=== PATIENT | male | born 1965 | race African-American/Black ===

== ENCOUNTER 2017-07-17 14:05 | Emergency (ER) | payer SELFPAY ==
[2017-07-17 14:14] VITALS: BP 138/82; BMI 24.3
--- NOTE | 2017-07-17 14:40 | RAD ---
Examination: Portable AP chest History: Chest pain Comparison reference: None Findings: The heart is borderline enlarged, accentuated by nonstandard projection. There are prominen t linear pulmonary markings in the medial right lung base. There is no consolidation, pulmonary edema or pleural effusion. Impression: Borderline to mild cardiomegaly. Minor areas of right basal atelectasis may be present. N egative otherwise. Reported By:
--- NOTE | 2017-07-17 14:51 | DR.GENAD ---
HPI - PCP Primary Care Physician: NFD - Complaint/Symptoms Chief Complaint Doctors Comments: Patient states he has been having chest pain for the past two days. States pain started again today about four hours ago while he was cleaning a "coon". States he has been celebrating and has been drinking a lot but does not do drugs. States he is from [place] and he does not know the name of his doctor. He denies any recent trauma. States he smokes . He denies cold or cough. Chief Complaint:: "I have been having chest pain for about 2 days now. It is sharp pain." - Nurses notes reviewed Nurses Notes Review: Yes - Source History Provided: Patient - Mode of Arrival Mode of Arrival: EMS - Timing Onset of Chief Complaint: 07/15/17 Came on: Gradually - Duration Duration: Intermittent How lon Duration: Days - Location Location: xiphoid chest - Severity Severity: Moderate - Modifying Factors Worsens:: nothing Improves:: nothing PMH - PMH Past Medical History: Yes Past Medical History: Hypertension Past Medical History Comment: HIV Past Surgical History: Yes Surgical History: Other Past Surgical History Comment: Hernia repair - Family History History of Family Medical Conditions: (Unknown) - Social History Does patient currently use any type of tobacco product: Yes Have you used tobacco products in the last 12 months: Yes Type of Tobacco Use: Cigarettes Does any household member use tobacco: No Alcohol Use: Heavy Do you use any recreational Drugs:: No Lives With: Alone Lives Where: Home - infectious screening In the last 2 months have you had wt loss of >10#?: NO Have you had fever, night sweats or hemotysis?: No Have you traveled outside the country in the last 6 months?: No Isolation: Standard ROS - Review of Systems Constitutional: No Symptoms Reported. negative: See HPI, Chills, Diaphoresis, Fever, Malaise, Weakness, Irritable, Fatigue, Loss of Appetite, Other Eyes: No Symptoms Reported. negative: See HPI, Eye Pain, Blurred Vision, Tearing, Discharge, Photophobia, Diplopia, Other ENTM: No Symptoms Reported. negative: See HPI, Ear Pain, Ear Discharge, Pulling on Ears, Hearing Loss, Nose Pain, Nose Discharge, Epistaxis, Nose Congestion, Mouth Pain, Mouth Swelling, Loose Teeth, Drooling, Throat Pain, Throat Swelling, Ear Foreign Body Respiratoy: No Symptoms Reported Cardiovascular: Chest Pain. negative: No Symptoms Reported, See HPI, Edema, Palpitations, Syncope, Cyanosis, Skin Mottling, Other Gastrointestinal/Abdominal: No Symptoms Reported. negative: See HPI, Abdominal Pain, Constipation, Diarrhea, Nausea, Vomiting, Food Intolerance, Other Genitourinary: No Symptoms Reported. negative: See HPI, Discharge, Dysuria, Frequency, Hematuria, Pain, Bleeding, Other Neurological: No Symptoms Reported Musculoskeletal: No Symptoms Reported Integumentary: No Symptoms Reported Hematologic/Lymphatic: No Symptoms Reported Endocrine: No Symptoms Reported Psychiatric: No Symptoms Reported PE - Vital Signs Vitals: Temperature 97.6 F Pulse Rate 93 Respiratory Rate 24 Blood Pressure 138/82 O2 Sat by Pulse Oximetry 99 - General Limitations: No Limitations General Appearance: Alert, In No Apparent Distress, Appears Intoxicated - Head Head Exam: Normal Inspection, Atraumatic, Normocephalic - Eyes Eye exam: Normal Appearance, PERRL, EOMI. negative: Scleral Icterus, Conjunctival Injection, Nystagmus, Miosis, Mydrasis, Periorbital Swelling, Periorbital Tenderness, Other - ENT ENT Exam: Normal Exam, Normal Oropharynx, Normal External Ear Exam, Mucous Membranes Moist, TM's Normal Bilaterally External Ear Exam: Normal External Inspection TM/Canal Exam: Bilateral Normal Nose Exam: Normal Nose Exam Mouth Exam: Normal Inspection Throat Exam: Normal Inspection - Neck Neck Exam: Normal Inspection, Full ROM, Trachea Midline. negative: Tenderness, Meningismus, Lymphadenopathy, Thyromegaly, Other - Chest Chest Inspection: Normal Inspection, Symmetric Chest Wall Rise - Respiratory Respiratory Exam: Normal Lung Sounds Bilat Respiratory Exam: Bilateral Clear to Auscultation - Cardiovascular Cardiovascular Exam: Regular Rate, Normal Rhythm, Normal Heart Sounds - Abdominal Exam Abdominal Exam: Normal Inspection, Normal Bowel Sounds, Soft, Distention Abdominal Tenderness: negative: RUQ, RLQ, LUQ, LLQ, Epigastrium, Suprapubic, Diffuse, Mild, Moderate, Severe, Other - Extremities Extremities Exam: Normal Inspection, Full ROM, Normal Capillary Refill. negative: Tenderness, Edema, Joint Swelling, Calf Tenderness, Other - Back Back Exam: Normal Inspection, Full ROM. negative: Tenderness, (R) CVA Tenderness, (L) CVA Tenderness, Muscle Spasm, Paraspinal Tenderness, Vertebral Tenderness, Rashes, (R) Sciatic Notch Tenderness, (L) Sciatic Notch Tendern, (R ) Straight Leg Raise, (L) Straight Leg Raise, Other - Neurologic Neurological Exam: Alert, Oriented X3, CN II-XII Intact, Normal Gait, Reflexes Normal - Psychiatric Psychiatric Exam: Normal Affect, Anxious - Skin Skin Exam: Warm, Dry, Intact, Normal Color ROR - Labs Reviewed Result Diagrams: 07/17/17 14:26 07/17/17 14:26 Laboratory: WBC 5.7 X10^3/uL (3.6-10.0) 07/17/17 14:26 RBC 4.13 X10^6/uL (4.7-6.0) L 07/17/17 14:26 Hgb 13.8 g/dL (13.5-18.0) 07/17/17 14:26 Hct 41.0 % (42.0-54.0) L 07/17/17 14:26 MCV 99.3 fL (80.0-100.0) 07/17/17 14:26 MCH 33.3 pg (27.0-34.0) 07/17/17 14:26 MCHC 33.5 g/dL (33.0-35.0) 07/17/17 14:26 RDW 12.9 % (11.6-16.5) 07/17/17 14:26 Plt Count 93 X10^3/uL (150.0-450.0) L 07/17/17 14:26 MPV 9.6 fL (7.4-11.0) 07/17/17 14:26 Neut % 23.7 % (42.0-75.0) L 07/17/17 14:26 Lymph % 57.6 % (21.0-51.0) H 07/17/17 14:26 [place] % 16.2 % (0.0-13.0) H 07/17/17 14:26 Eos % 1.9 % (0.9-2.9) 07/17/17 14:26 Baso % 0.6 % (0.2-1.0) 07/17/17 14:26 Neut # 1.3 x10^3/uL (2.2-4.8) L 07/17/17 14:26 Lymph # 3.3 X10^3/uL (1.3-2.9) H 07/17/17 14:26 [place] # 0.9 x10^3/uL (0.3-0.8) H 07/17/17 14:26 Eos # 0.1 x10^3/uL (0.0-0.2) 07/17/17 14:26 Baso # 0.0 X10^3/uL (0.0-0.1) 07/17/17 14:26 Absolute Nucleated RBC 0.1 /100WBC 07/17/17 14:26 INR Target Range - 07/17/17 14:26 INR 1.00 (0.8-1.3) 07/17/17 14:26 PTT 27.2 SECONDS (22.9-36.5) 07/17/17 14:26 PTT Comment - 07/17/17 14:26 Sodium 142 mmol/L (136-145) 07/17/17 14:26 Corrected Sodium TNP 07/17/17 14:26 Potassium 3.5 mmol/L (3.5-5.1) 07/17/17 14:26 Chloride 106 mmol/L (98-107) 07/17/17 14:26 Carbon Dioxide 25.9 mmol/L (21-32) 07/17/17 14:26 BUN 14 mg/dL (7-18) 07/17/17 14:26 Creatinine 1.01 mg/dL (0.70-1.30) 07/17/17 14:26 Est GFR (MDRD) Af Amer > 60 (>60) 07/17/17 14:26 Est GFR (MDRD) Non-Af > 60 (>60) 07/17/17 14:26 Glucose 97 mg/dL (65-99) 07/17/17 14:26 Calcium 8.5 mg/dL (8.5-10.1) 07/17/17 14:26 Corrected Calcium TNP 07/17/17 14:26 Phosphorus 4.0 mg/dL (2.6-4.7) 07/17/17 14:26 Magnesium 2.1 mg/dL (1.7-2.9) 07/17/17 14:26 Total Bilirubin 0.20 mg/dL (0.2-1.0) 07/17/17 14:26 AST 110 Units/L (15-37) H 07/17/17 14:26 ALT 134 Units/L (12-78) H 07/17/17 14:26 Alkaline Phosphatase 197 Units/L (46-116) H 07/17/17 14:26 Creatine Kinase 274 Units/L (39-308) 07/17/17 14:26 CK-MB (CK-2) < 1.0 ng/mL (0-4.0) 07/17/17 14:26 CK/CKMB % Calc 0.4 % (<4) 07/17/17 14:26 Troponin I < 0.02 ng/mL (0-1.5) 07/17/17 14:26 Total Protein 8.3 g/dL (6.4-8.2) H 07/17/17 14:26 Albumin 3.9 g/dL (3.4-5.0) 07/17/17 14:26 Globulin 4.4 g/dL (2.5-4.5) 07/17/17 14:26 Albumin/Globulin Ratio 0.9 Ratio (1.1-2.1) L 07/17/17 14:26 Ethyl Alcohol mg/dL 412 mg/dL (0-19.9) H 07/17/17 14:26 - Diagnosis Discharge Problem: Chest pain, rule out acute myocardial infarction Alcohol intoxication Qualifiers: Complication of substance-induced condition: uncomplicated Qualified Code(s): F10.920 - Alcohol use, unspecified with intoxication, uncomplicated - Discharge Plan Condition: Stable - Follow ups/Referrals Follow ups/Referrals: NFD,None [Primary Care Provider] - 3 days - Instructions
[2017-07-17 15:00] LABS: BASOPHILS % (AUTO) 0.6 % (0.2-1.0); EOSINOPHILS # (AUTO) 0.1 x10^3/uL (0.0-0.2); EOSINOPHILS % (AUTO) 1.9 % (0.9-2.9); HEMOGLOBIN 13.8 g/dL (13.5-18.0); LYMPHOCYTES # (AUTO) 3.3 X10^3/uL (1.3-2.9); LYMPHOCYTES % (AUTO) 57.6 % (21.0-51.0); MEAN CORPUSCULAR HEMOGLOBIN 33.3 pg (27.0-34.0); MEAN CORPUSCULAR HGB CONC 33.5 g/dL (33.0-35.0); MEAN CORPUSCULAR VOLUME 99.3 fL (80.0-100.0); MEAN PLATELET VOLUME 9.6 fL (7.4-11.0); MONOCYTES # (AUTO) 0.9 x10^3/uL (0.3-0.8); MONOCYTES % (AUTO) 16.2 % (0.0-13.0); NEUTROPHILS # (AUTO) 1.3 x10^3/uL (2.2-4.8); NEUTROPHILS % (AUTO) 23.7 % (42.0-75.0); PLATELET COUNT 93 X10^3/uL (150.0-450.0); RED BLOOD COUNT 4.13 X10^6/uL (4.7-6.0); RED CELL DISTRIBUTION WIDTH 12.9 % (11.6-16.5); WHITE BLOOD COUNT 5.7 X10^3/uL (3.6-10.0)
[2017-07-17 15:20] LABS: ALANINE AMINOTRANSFERASE 134 Units/L (12-78); ALBUMIN 3.9 g/dL (3.4-5.0); ALKALINE PHOSPHATASE 197 Units/L (46-116); ASPARTATE AMINO TRANSFERASE 110 Units/L (15-37); BLOOD UREA NITROGEN 14 mg/dL (7-18); CALCIUM 8.5 mg/dL (8.5-10.1); CARBON DIOXIDE 25.9 mmol/L (21-32); CHLORIDE 106 mmol/L (98-107); CKMB % 0.4 % (<4); CREATINE KINASE 274 Units/L (39-308); CREATINE KINASE MB < 1.0 ng/mL (0-4.0); CREATININE 1.01 mg/dL (0.70-1.30); MAGNESIUM 2.1 mg/dL (1.7-2.9); SODIUM 142 mmol/L (136-145); TOTAL PROTEIN 8.3 g/dL (6.4-8.2); TROPONIN I < 0.02 ng/mL (0-1.5); eGFR BLACK RACES > 60 (>60); eGFR NON BLACK RACES > 60 (>60)
== END 2017-07-17 17:20 | disposition left against medical advice (07) ==
LOC: ER 14:14
DX: R07.89 Other chest pain (principal); F10.920 Alcohol use, unspecified with intoxication, uncomplicated
CPT/HCPCS: 36415; 71010; 80053; 80320; 82550; 82553; 83735; 84100; 84484; 85025; 85610; 85730; 93005; 93010; 96365; 96374; 99283; G6040

== ENCOUNTER 2017-07-22 15:05 | Inpatient (IN) | payer SELFPAY ==
[2017-07-22] MEDS ORDERED: TORADOL 30 MG VIAL IVP ONE (16:07)
[2017-07-22] MEDS ORDERED: NS 1000 ML 1,000 ML IV ONE (16:08)
[2017-07-22] MEDS ORDERED: ZOFRAN INJ 4 MG VIAL ONE ×2 (16:10→20:42)
[2017-07-22] MEDS ORDERED: ZOFRAN INJ 4 MG VIAL IVP ONE ×2 (16:10→20:42)
[2017-07-22] MEDS ORDERED: NS 1000 ML 1,000 ML ONE ×2 (16:10→20:34)
--- NOTE | 2017-07-22 16:11 | DR.GENAD ---
HPI - PCP Primary Care Physician: NFD - Complaint/Symptoms Chief Complaint Doctors Comments: He presents with 2 days of abdominal crampy pain, nausea with vomitting and diarrhea which is bloody. He denies fever or chills. He denies consumption of poorly prepared food items. He resides in [place] but he is here briefly visiting his brother. Chief Complaint:: PT C/O N/V/D, RECTAL BLEEDING WITH SEVERE ABD PAIN - Nurses notes reviewed Nurses Notes Review: Yes - Source History Provided: Patient - Mode of Arrival Mode of Arrival: EMS - Timing Onset of Chief Complaint: 07/19/17 Came on: Gradually - Severity Severity: Moderate - Modifying Factors Worsens:: nothing Improves:: nothing PMH - PMH Past Medical History: Yes Past Medical History: Hypertension Past Medical History Comment: HIV Past Surgical History: Yes Surgical History: Other Past Surgical History Comment: HERNIA REPAIR - Family History History of Family Medical Conditions: No - Social History Does patient currently use any type of tobacco product: Yes Have you used tobacco products in the last 12 months: Yes Type of Tobacco Use: Cigarettes Does any household member use tobacco: Yes Alcohol Use: Heavy Do you use any recreational Drugs:: No Lives With: Family Lives Where: Home - infectious screening In the last 2 months have you had wt loss of >10#?: NO Have you had fever, night sweats or hemotysis?: No Have you traveled outside the country in the last 6 months?: No Isolation: Standard ROS - Review of Systems Constitutional: No Symptoms Reported Eyes: No Symptoms Reported ENTM: No Symptoms Reported Respiratoy: No Symptoms Reported Cardiovascular: No Symptoms Reported Gastrointestinal/Abdominal: Abdominal Pain, Diarrhea (bloody), Nausea, Vomiting Genitourinary: No Symptoms Reported Neurological: No Symptoms Reported Musculoskeletal: No Symptoms Reported Integumentary: No Symptoms Reported Hematologic/Lymphatic: No Symptoms Reported Endocrine: No Symptoms Reported Psychiatric: No Symptoms Reported All Other Systems: Reviewed and Negative PE - Vital Signs Vitals: Temperature 99.8 F Pulse Rate 118 Respiratory Rate 22 Blood Pressure 141/88 O2 Sat by Pulse Oximetry 97 - General Limitations: No Limitations General Appearance: Alert, In No Apparent Distress - Head Head Exam: Normal Inspection - Eyes Eye exam: Normal Appearance - ENT ENT Exam: Normal Exam - Neck Neck Exam: Normal Inspection - Chest Chest Inspection: Normal Inspection - Respiratory Respiratory Exam: Normal Lung Sounds Bilat - Cardiovascular Cardiovascular Exam: Regular Rate, Normal Rhythm - Abdominal Exam Abdominal Exam: Normal Inspection, Normal Bowel Sounds, Soft, Tenderness ( diffuse) Abdominal Tenderness: Diffuse - Extremities Extremities Exam: Normal Inspection - Back Back Exam: Normal Inspection - Neurologic Neurological Exam: Alert, Oriented X3, CN II-XII Intact - Psychiatric Psychiatric Exam: Normal Affect, Normal Mood - Skin Skin Exam: Warm ROR - Labs Reviewed Result Diagrams: 07/22/17 16:20 07/22/17 16:35 Laboratory: WBC 7.6 X10^3/uL (3.6-10.0) 07/22/17 16:20 RBC 4.28 X10^6/uL (4.7-6.0) L 07/22/17 16:20 Hgb 14.2 g/dL (13.5-18.0) 07/22/17 16:20 Hct 41.7 % (42.0-54.0) L 07/22/17 16:20 MCV 97.6 fL (80.0-100.0) 07/22/17 16:20 MCH 33.3 pg (27.0-34.0) 07/22/17 16:20 MCHC 34.1 g/dL (33.0-35.0) 07/22/17 16:20 RDW 13.0 % (11.6-16.5) 07/22/17 16:20 Plt Count 164 X10^3/uL (150.0-450.0) 07/22/17 16:20 MPV 9.2 fL (7.4-11.0) 07/22/17 16:20 Neut % 63.1 % (42.0-75.0) 07/22/17 16:20 Lymph % 19.9 % (21.0-51.0) L 07/22/17 16:20 [place] % 15.7 % (0.0-13.0) H 07/22/17 16:20 Eos % 0.6 % (0.9-2.9) L 07/22/17 16:20 Baso % 0.7 % (0.2-1.0) 07/22/17 16:20 Neut # 4.8 x10^3/uL (2.2-4.8) 07/22/17 16:20 Lymph # 1.5 X10^3/uL (1.3-2.9) 07/22/17 16:20 [place] # 1.2 x10^3/uL (0.3-0.8) H 07/22/17 16:20 Eos # 0.0 x10^3/uL (0.0-0.2) 07/22/17 16:20 Baso # 0.1 X10^3/uL (0.0-0.1) 07/22/17 16:20 Absolute Nucleated RBC 0.0 /100WBC 07/22/17 16:20 Sodium 142 mmol/L (136-145) 07/22/17 16:35 Corrected Sodium TNP 07/22/17 16:35 Potassium 3.3 mmol/L (3.5-5.1) L 07/22/17 16:35 Chloride 103 mmol/L (98-107) 07/22/17 16:35 Carbon Dioxide 25.0 mmol/L (21-32) 07/22/17 16:35 BUN 9 mg/dL (7-18) 07/22/17 16:35 Creatinine 0.86 mg/dL (0.70-1.30) 07/22/17 16:35 Est GFR (MDRD) Af Amer > 60 (>60) 07/22/17 16:35 Est GFR (MDRD) Non-Af > 60 (>60) 07/22/17 16:35 Glucose 110 mg/dL (65-99) H 07/22/17 16:35 Calcium 8.1 mg/dL (8.5-10.1) L 07/22/17 16:35 Corrected Calcium TNP 07/22/17 16:35 Total Bilirubin 0.20 mg/dL (0.2-1.0) 07/22/17 16:35 AST 54 Units/L (15-37) H 07/22/17 16:35 ALT 96 Units/L (12-78) H 07/22/17 16:35 Alkaline Phosphatase 162 Units/L (46-116) H 07/22/17 16:35 Total Protein 7.8 g/dL (6.4-8.2) 07/22/17 16:35 Albumin 3.4 g/dL (3.4-5.0) 07/22/17 16:35 Globulin 4.4 g/dL (2.5-4.5) 07/22/17 16:35 Albumin/Globulin Ratio 0.8 Ratio (1.1-2.1) L 07/22/17 16:35 Amylase 44 Units/L (25-115) 07/22/17 16:35 Lipase 125 Units/L (73-393) 07/22/17 16:35 - Diagnosis Discharge Problem: Rectal bleeding, Colitis, Nausea & vomiting, HIV disease - Discharge Plan Disposition: 09 ADMITTED INPATIENT Condition: Stable - Follow ups/Referrals Follow ups/Referrals: NFD,None [Primary Care Provider] - 3 days - Instructions Instructions: Smoking Cessation, Tips for Success, [id number]
[2017-07-22] MEDS ORDERED: DILAUDID INJ IVP ONE (16:12)
[2017-07-22] MEDS ORDERED: DILAUDID INJ ONE (16:25)
[2017-07-22 16:29] LABS: BASOPHILS # (AUTO) 0.1 X10^3/uL (0.0-0.1); BASOPHILS % (AUTO) 0.7 % (0.2-1.0); EOSINOPHILS % (AUTO) 0.6 % (0.9-2.9); HEMATOCRIT 41.7 % (42.0-54.0); HEMOGLOBIN 14.2 g/dL (13.5-18.0); LYMPHOCYTES # (AUTO) 1.5 X10^3/uL (1.3-2.9); LYMPHOCYTES % (AUTO) 19.9 % (21.0-51.0); MEAN CORPUSCULAR HEMOGLOBIN 33.3 pg (27.0-34.0); MEAN CORPUSCULAR HGB CONC 34.1 g/dL (33.0-35.0); MEAN CORPUSCULAR VOLUME 97.6 fL (80.0-100.0); MEAN PLATELET VOLUME 9.2 fL (7.4-11.0); MONOCYTES # (AUTO) 1.2 x10^3/uL (0.3-0.8); MONOCYTES % (AUTO) 15.7 % (0.0-13.0); NEUTROPHILS # (AUTO) 4.8 x10^3/uL (2.2-4.8); NEUTROPHILS % (AUTO) 63.1 % (42.0-75.0); PLATELET COUNT 164 X10^3/uL (150.0-450.0); RED BLOOD COUNT 4.28 X10^6/uL (4.7-6.0); WHITE BLOOD COUNT 7.6 X10^3/uL (3.6-10.0)
[2017-07-22 16:55] LABS: ALANINE AMINOTRANSFERASE 96 Units/L (12-78); ALBUMIN 3.4 g/dL (3.4-5.0); ALKALINE PHOSPHATASE 162 Units/L (46-116); AMYLASE 44 Units/L (25-115); ASPARTATE AMINO TRANSFERASE 54 Units/L (15-37); BLOOD UREA NITROGEN 9 mg/dL (7-18); CALCIUM 8.1 mg/dL (8.5-10.1); CHLORIDE 103 mmol/L (98-107); CREATININE 0.86 mg/dL (0.70-1.30); LIPASE 125 Units/L (73-393); SODIUM 142 mmol/L (136-145); TOTAL PROTEIN 7.8 g/dL (6.4-8.2); eGFR BLACK RACES > 60 (>60); eGFR NON BLACK RACES > 60 (>60)
--- NOTE | 2017-07-22 17:29 | CT ---
HISTORY: Abdominal pain. Study: CT abdomen and pelvis without contrast Comparison: None. Technique: Multiple axial images of the abdomen and pelvis were obtained from the lung bases to the pubic symphy sis without the administration of IV contrast. Dose reduction techniques including Automated Exposur e Control (AEC) and adjustment of mA and kV were utilized. Findings: Limited study secondary to lack of IV and oral contrast. The visualized portions of the lung bases are unremarkable. The liver, spleen, pancreas, kidneys, an d adrenal glands are unremarkable in their CT appearance. The gallbladder is unremarkable in its CT a ppearance. No significant mesenteric lymphadenopathy or stranding can be observed. No free fluid or free air is seen within the abdomen. Limited evaluation of the bowel secondary to lack of oral cont rast and collapse. There is nonspecific long segment thickening of the descending colon from the sple rex flexure to the distal sigmoid colon. Associated soft tissue stranding. Remaining large and small bowel appear normal. The appendix appears normal. Postsurgical changes status post right inguinal her cleopatra repair. Nonspecific calcifications within the prostate gland. The urinary bladder is grossly unre markable. Scattered atherosclerotic vascular calcifications. Degenerative changes of the spine. No ag gressive osseous lesions. IMPRESSION: 1. Constellation of findings as above likely representing infectious versus inflammatory colitis. Thi s less likely represents ischemic colitis given minimal atherosclerotic vascular calcification. Under lying malignancy is not entirely excluded. Recommend clinical/laboratory correlation and consider dir ect visualization after patient is recovered from current episode. 2. Other chronic findings as above. Reported By:
[2017-07-22] MEDS ORDERED: BENTYL I.M. INJ 10 MG IM ONE ×2 (18:15→19:37)
[2017-07-22] MEDS ORDERED: FLAGYL IV PREMIX 500 MG BAG 500 MG/100 ML BAG IV ONE (20:34)
[2017-07-22] MEDS: FLAGYL IV PREMIX 500 MG BAG 500 MG/100 ML BAG IV SCH (20:40)
[2017-07-22] MEDS: NS 1000 ML 1,000 ML IV SCH (20:41)
[2017-07-22] MEDS ORDERED: ZOFRAN INJ 4 MG VIAL 16 MG, ATIVAN INJ 2 MG VIAL 1 MG, DECADRON INJ 10 MG in NS 50 ML I... IV ONE (20:42)
[2017-07-22] MEDS ORDERED: ZOFRAN INJ 4 MG VIAL IVP PRN (20:45)
[2017-07-22] MEDS: SOLU-Medrol 40 MG VIAL IVP SCH (21:48)
[2017-07-22] MEDS: DILAUDID INJ IVP PRN (22:20)
[2017-07-23] MEDS: DILAUDID INJ IVP PRN ×4 (02:30→21:18)
[2017-07-23] MEDS ORDERED: PHENERGAN INJ 25 MG IV PRN (04:06)
[2017-07-23] MEDS: NS 1000 ML 1,000 ML IV SCH ×3 (05:03→21:51)
[2017-07-23] MEDS: SOLU-Medrol 40 MG VIAL IVP SCH ×3 (05:03→21:16)
[2017-07-23 05:33] LABS: BASOPHILS % (AUTO) 0.1 % (0.2-1.0); HEMATOCRIT 37.2 % (42.0-54.0); HEMOGLOBIN 12.4 g/dL (13.5-18.0); LYMPHOCYTES # (AUTO) 0.5 X10^3/uL (1.3-2.9); LYMPHOCYTES % (AUTO) 9.6 % (21.0-51.0); MEAN CORPUSCULAR HEMOGLOBIN 33.6 pg (27.0-34.0); MEAN CORPUSCULAR HGB CONC 33.4 g/dL (33.0-35.0); MEAN CORPUSCULAR VOLUME 100.6 fL (80.0-100.0); MONOCYTES # (AUTO) 0.4 x10^3/uL (0.3-0.8); MONOCYTES % (AUTO) 6.7 % (0.0-13.0); NEUTROPHILS # (AUTO) 4.5 x10^3/uL (2.2-4.8); NEUTROPHILS % (AUTO) 83.6 % (42.0-75.0); PLATELET COUNT 119 X10^3/uL (150.0-450.0); RED CELL DISTRIBUTION WIDTH 12.6 % (11.6-16.5); WHITE BLOOD COUNT 5.4 X10^3/uL (3.6-10.0)
[2017-07-23 05:54] LABS: ALANINE AMINOTRANSFERASE 77 Units/L (12-78); ALBUMIN 3.2 g/dL (3.4-5.0); ALKALINE PHOSPHATASE 119 Units/L (46-116); ASPARTATE AMINO TRANSFERASE 31 Units/L (15-37); BLOOD UREA NITROGEN 8 mg/dL (7-18); CALCIUM 8.5 mg/dL (8.5-10.1); CARBON DIOXIDE 26.9 mmol/L (21-32); CHLORIDE 103 mmol/L (98-107); COR CA(FOR HYPOALB) 9.1 mg/dL (8.5-10.1); COR NA(FOR HYPERGLY) 141 mmol/L (136-145); CREATININE 0.95 mg/dL (0.70-1.30); SODIUM 140 mmol/L (136-145); TOTAL PROTEIN 7.6 g/dL (6.4-8.2); eGFR BLACK RACES > 60 (>60); eGFR NON BLACK RACES > 60 (>60)
[2017-07-23] MEDS ORDERED: BENADRYL CAP 50 MG PO ONE (06:52)
[2017-07-23] MEDS ORDERED: BENADRYL CAP/TAB 25 MG PO ONE (06:54)
[2017-07-23] MEDS: FLAGYL IV PREMIX 500 MG BAG 500 MG/100 ML BAG IV SCH ×2 (08:00→22:43)
[2017-07-23] MEDS: CIPRO IV 400 MG PREMIX* 400 MG/200 ML IV.SOLN. IV SCH ×2 (09:34→21:20)
--- NOTE | 2017-07-23 10:16 | DR.H&P ---
H&P - History & Physical for Day of: H&P Date: 07/22/17 - Chief Complaint Chief Complaint: ABDOMINAL PAIN, N/V/D - Allergies Allergies/Adverse Reactions: Allergies Allergy/AdvReac Type Severity Reaction Status Date / Time ibuprofen Allergy Verified 07/17/17 14:07 - History of Present Illness History of Present Illness: IS A 51 YEAR OLD BLACK MALE WHO PRESENTED TO THE EMERGENCY ROOM WITH COMPLAINTS OF NAUSEA, VOMITING, DIARRHEA, RECTAL BLEEDING, AND SEVERE ABDOMINAL PAIN. PATIENT REPORTED THAT SYMPTOMS STARTED TWO DAYS PRIOR TO ARRIVAL AT THE EMERGENCY ROOM. HE DENIES FEVER, CHILLS, OR CONSUMPTION OF POORLY PREPARED FOODS. ON EXAMINATION, LUNGS ARE CLEAR TO AUSCULTATION. ABDOMEN IS FLAT, SOFT, AND NOTED WITH MODERATE, DIFFUSE TENDERNESS TO PALPATION. HYPERACTIVE BOWEL SOUNDS NOTED IN ALL QUADRANTS. ON ARRIVAL TO THE ER, HIS VITAL SIGNS WERE 99.8-118-22-97%-141/88. LABS AND A CT OF THE ABD/PELVIS WERE OBTAINED. ABNORMAL LAB VALUES INCLUDE THE FOLLOWING: RBC 4.28, HCT 41.7, POTASSIUM 3.3, GLUCOSE 110, CALCIUM 8.1, AST 54, ALT 96, ALK PHOS 162, A/G RATIO 0.8. CT REPORTED FINDINGS LIKELY REPRESENTING INFECTIOUS VERSUS INFLAMMATORY COLITIS. LESS LIKELY REPRESENTING ISCHEMIC COLITIS GIVEN MINIMAL ATHEROSCLEROTIC VASCULAR CALCIFICATION. UNDERLYING MALIGNANCY NO EXLUDED. HE WAS GIVEN ZOFRAN, BENTYL, DILAUDID, AND A NORMAL SALINE BOLUS IN THE ER WITH ONLY MILD IMPROVEMENT IN PAIN NOTED. WE ADMITTED PATIENT TO THE HOSPITAL FOR FURTHER EVALUATION AND TREATMENT. WE PLAN TO CONSULT WITH GASTROENTEROLOGY CONCERNING FINDINGS. PATIENT STARTED ON GLAGYL 500MG IV Q12, NORMAL SALINE AT 125ML/HR, ZOFRAN 4MG IV Q6H PRN NAUSEA, DILAUDID 2MG IV Q4H PRN PAIN, AND SOLU-MEDROL 40MG IV Q8H. WE PLAN TO FOLLOW UP WITH AM LABS AND CONTINUE TO MONITOR PATIENT. - Past Medical History Past Medical History: Hypertension - Past Surgical History Surgical History: Other - Social History Does patient currently use any type of tobacco product: Yes Have you used tobacco products in the last 12 months: Yes Type of Tobacco Use: Cigarettes Does any household member use tobacco: Yes Alcohol Use: Heavy Drug Use: None - Medications Home Medications: Darunavir Ethanolate [Prezista] 1 tab PO BID 07/23/17 [History Confirmed ] Emtricitabine/Tenofovir (Tdf) [Truvada 200 mg-300 mg Tablet] 1 tab PO DAILY [History Confirmed 07/23/17] Ritonavir [Norvir] 1 tab PO BID 07/23/17 [History Confirmed 07/23/17] Sucralfate [CARAFATE TAB 1 GM *] 1 oz PO ACHS 07/23/17 [History Confirmed ] - Review of Systems Constitutional: No Symptoms Reported. denies: Fever, Chills, Sweats, Weakness, Malaise, Other Eyes: No Symptoms Reported. denies: Pain, Vision Change, Conjunctivae Inflammation, Eyelid Inflammation, Redness, Other ENT: No Symptoms Reported. denies: Ear Pain, Ear Discharge, Nose Pain, Nose Discharge, Nose Congestion, Mouth Pain, Mouth Swelling, Throat Pain, Throat Swelling, Other Respiratory: No Symptoms Reported. denies: Cough, Dry, Shortness of Breath, Hemoptysis, SOB with Excertion, Pleuritic Pain, Sputum, Wheezing, Other Cardiovascular: No Symptoms Reported. denies: Chest Pain, Palpitations, Orthopnea, Paroxysmal Noc. Dyspnea, Edema, Light Headedness, Other Gastrointestinal: Nausea, Vomiting, Abdominal Pain, Diarrhea, Hematochezia Genitourinary: No Symptoms Reported. denies: See HPI, Dysuria, Frequency, Incontinence, Hematuria, Retention, Other Musculoskeletal: No Symptoms Reported. denies: Shoulder Pain, Arm Pain, Back Pain, Hand Pain, Leg Pain, Foot Pain, Neck Pain, Other Skin: No Symptoms Reported. denies: Rash, Lesions, Jaundice, Bruising, Wound, Ecchymosis, Other Neurological: No Symptoms Reported. denies: Weakness, Numbness, Incoordination , Change in Speech, Confusion, Seizures, Other - Physical Exam Vital Signs: Temperature 98 F Pulse Rate [Left Brachial] 90 Pulse Rate 118 Respiratory Rate 18 Blood Pressure [Left Arm] 171/88 Blood Pressure 141/88 O2 Sat by Pulse Oximetry 95 Oriented: Normal Eyes: Normal. negative: Blurred Vision, Diplopia, Discharge, Pain, Redness, Photophobia, Other Ear: Normal. negative: Right, Left, Swelling, Ecchymosis, Hemotypanum, Abrasion , Laceration Nose: Normal. negative: Injected, Discharge, Blood, Other Throat: Normal. negative: Tonsillar Hypertrophy, Red, Exudate, Dry, Other Respiratory: Clear Throughout. negative: Diminished Throughout, Rhonchi Throughout, Rales Throughout, Wheezes Throughout, RUL Clear, RML Clear, RLL Clear, NEGRO Clear, LML Clear, LLL Clear, RUL Diminished, RML Diminished, RLL Diminished, NEGRO Diminished, LML Diminished, LLL Diminished, RUL Absent, RML Absent, RLL Absent, NEGRO Absent, LML Absent, LLL Absent, RUL Rhonchi, RML Rhonchi , RLL Rhonchi, NEGRO Rhonchi, LML Rhonchi, LLL Rhonchi, RUL Insp. Wheeze, RML Insp. Wheeze, RLL Insp. Wheeze, NEGRO Insp.Wheeze, LML Insp.Wheeze, LLL Insp.Wheeze, RUL Exp. Wheeze, RML Exp. Wheeze, RLL Exp. Wheeze, NEGRO Exp. Wheeze , LML Exp. Wheeze, LLL Exp. Wheeze, RUL Rales, RML Rales, RLL Rales, NEGRO Rales, LML Rales, LLL Rales, RUL Rub, RML Rub, RLL Rub, NEGRO Rub, LML Rub, LLL Rub, RUL Squeak, RML Squeak, RLL Squeak, NEGRO Squeak, LML Squeak, LLL Squeak Cardiovascular: Normal. negative: Murmur, Edema : Normal. negative: Dysuria, Hematuria, Frequency, Discharge, Testicular Pain , Bleeding, , Other Auscultation: Bowel Sounds: Increased Palpation: Normal Tenderness: Diffuse, Moderate. negative: Rebound, Guarding, Rigidity Skin: Normal. negative: Diaphoresis, Wound, Bruising, Ecchymosis Musculoskeletal: Normal Psychiatric: Normal. negative: Anxiety, Depression, Agitation, Other Mood Description: Calm Affect: Normal Speech Pattern: Clear - Assessment/Plan (1) Colitis Status: Acute Plan: FLAGYL 500MG IV Q12, ADMINISTER PAIN AND NAUSEA MEDICATIONS, NORMAL SALINE AT 125ML/HR, CONSULT GI, CONTINUE TO MONITOR
[2017-07-23] MEDS ORDERED: CARAFATE PO SCH (11:30)
[2017-07-23] MEDS: DARUNAVIR ETHANOLATE PO SCH ×2 (11:52→21:52)
[2017-07-23] MEDS: RITONAVIR PO SCH ×2 (11:52→21:53)
[2017-07-23] MEDS: LOPRESSOR TAB 25 MG PO SCH (11:53)
[2017-07-23] MEDS: CARAFATE PO SCH ×4 (11:53→21:14)
[2017-07-23] MEDS: FOLIC ACID TAB 1 MG PO SCH (11:53)
[2017-07-23] MEDS: APRESOLINE TAB 25 MG PO SCH ×3 (12:36→21:15)
[2017-07-23] MEDS ORDERED: BENADRYL INJ 50 MG VIAL IVP ONE (21:38)
[2017-07-24] MEDS: PERCOCET TAB 5/325 MG PO PRN ×4 (01:24→19:53)
[2017-07-24 06:10] LABS: BASOPHILS % (AUTO) 0.2 % (0.2-1.0); HEMATOCRIT 34.9 % (42.0-54.0); LYMPHOCYTES # (AUTO) 1.2 X10^3/uL (1.3-2.9); LYMPHOCYTES % (AUTO) 13.4 % (21.0-51.0); MEAN CORPUSCULAR HEMOGLOBIN 34.1 pg (27.0-34.0); MEAN CORPUSCULAR HGB CONC 34.4 g/dL (33.0-35.0); MEAN CORPUSCULAR VOLUME 98.9 fL (80.0-100.0); MEAN PLATELET VOLUME 9.9 fL (7.4-11.0); MONOCYTES # (AUTO) 1.2 x10^3/uL (0.3-0.8); MONOCYTES % (AUTO) 13.7 % (0.0-13.0); NEUTROPHILS # (AUTO) 6.6 x10^3/uL (2.2-4.8); NEUTROPHILS % (AUTO) 72.7 % (42.0-75.0); PLATELET COUNT 137 X10^3/uL (150.0-450.0); RED BLOOD COUNT 3.52 X10^6/uL (4.7-6.0); RED CELL DISTRIBUTION WIDTH 12.5 % (11.6-16.5); WHITE BLOOD COUNT 9.1 X10^3/uL (3.6-10.0)
[2017-07-24] MEDS: APRESOLINE TAB 25 MG PO SCH ×3 (06:10→21:22)
[2017-07-24] MEDS: CARAFATE PO SCH ×4 (06:12→21:23)
[2017-07-24] MEDS: SOLU-Medrol 40 MG VIAL IVP SCH ×3 (06:14→21:25)
[2017-07-24 06:26] LABS: ALANINE AMINOTRANSFERASE 55 Units/L (12-78); ALBUMIN 2.8 g/dL (3.4-5.0); ALKALINE PHOSPHATASE 113 Units/L (46-116); ASPARTATE AMINO TRANSFERASE 27 Units/L (15-37); BLOOD UREA NITROGEN 9 mg/dL (7-18); CALCIUM 8.8 mg/dL (8.5-10.1); CARBON DIOXIDE 27.1 mmol/L (21-32); CHLORIDE 103 mmol/L (98-107); COR CA(FOR HYPOALB) 9.8 mg/dL (8.5-10.1); COR NA(FOR HYPERGLY) 139 mmol/L (136-145); CREATININE 0.83 mg/dL (0.70-1.30); SODIUM 138 mmol/L (136-145); eGFR BLACK RACES > 60 (>60); eGFR NON BLACK RACES > 60 (>60)
[2017-07-24 06:48] LABS: ERYTHROCYTE SEDIMENTATION RATE 13 MM/HOUR (0-15)
[2017-07-24] MEDS: NS 1000 ML 1,000 ML IV SCH ×3 (07:13→17:48)
[2017-07-24] MEDS: LOPRESSOR TAB 25 MG PO SCH (08:54)
[2017-07-24] MEDS: CIPRO IV 400 MG PREMIX* 400 MG/200 ML IV.SOLN. IV SCH ×2 (08:54→22:30)
[2017-07-24] MEDS: FOLIC ACID TAB 1 MG PO SCH (08:54)
[2017-07-24] MEDS: FLAGYL IV PREMIX 500 MG BAG 500 MG/100 ML BAG IV SCH ×2 (08:54→21:24)
[2017-07-24] MEDS ORDERED: PREPARATION H OINT RECTAL PRN (14:23)
[2017-07-24] MEDS: DARUNAVIR ETHANOLATE PO SCH ×2 (14:24→21:25)
[2017-07-24] MEDS: RITONAVIR PO SCH ×2 (14:25→21:26)
[2017-07-24 15:09] VITALS: BMI 23.2
[2017-07-24] MEDS: PROCTOSOL HC CRM 2.5% TOP SCH ×3 (17:45→21:26)
[2017-07-24] MEDS ORDERED: COLACE CAP 100 MG PO PRN (21:44)
[2017-07-25] MEDS: NS 1000 ML 1,000 ML IV SCH (04:56)
[2017-07-25] MEDS: PERCOCET TAB 5/325 MG PO PRN ×2 (04:57→10:54)
[2017-07-25] MEDS: APRESOLINE TAB 25 MG PO SCH (05:08)
[2017-07-25] MEDS: SOLU-Medrol 40 MG VIAL IVP SCH (05:09)
[2017-07-25 05:50] LABS: BASOPHILS % (AUTO) 0.2 % (0.2-1.0); HEMATOCRIT 36.2 % (42.0-54.0); HEMOGLOBIN 12.4 g/dL (13.5-18.0); LYMPHOCYTES # (AUTO) 1.7 X10^3/uL (1.3-2.9); MEAN CORPUSCULAR HEMOGLOBIN 33.4 pg (27.0-34.0); MEAN CORPUSCULAR HGB CONC 34.3 g/dL (33.0-35.0); MEAN CORPUSCULAR VOLUME 97.4 fL (80.0-100.0); MEAN PLATELET VOLUME 9.7 fL (7.4-11.0); MONOCYTES # (AUTO) 1.2 x10^3/uL (0.3-0.8); MONOCYTES % (AUTO) 12.1 % (0.0-13.0); NEUTROPHILS # (AUTO) 7.4 x10^3/uL (2.2-4.8); NEUTROPHILS % (AUTO) 71.7 % (42.0-75.0); PLATELET COUNT 163 X10^3/uL (150.0-450.0); RED BLOOD COUNT 3.71 X10^6/uL (4.7-6.0); RED CELL DISTRIBUTION WIDTH 12.6 % (11.6-16.5); WHITE BLOOD COUNT 10.3 X10^3/uL (3.6-10.0)
[2017-07-25 06:05] LABS: ALANINE AMINOTRANSFERASE 47 Units/L (12-78); ALBUMIN 2.4 g/dL (3.4-5.0); ALKALINE PHOSPHATASE 145 Units/L (46-116); ASPARTATE AMINO TRANSFERASE 23 Units/L (15-37); BLOOD UREA NITROGEN 9 mg/dL (7-18); CALCIUM 8.4 mg/dL (8.5-10.1); CARBON DIOXIDE 26.7 mmol/L (21-32); CHLORIDE 104 mmol/L (98-107); COR CA(FOR HYPOALB) 9.7 mg/dL (8.5-10.1); CREATININE 0.77 mg/dL (0.70-1.30); SODIUM 139 mmol/L (136-145); TOTAL PROTEIN 6.1 g/dL (6.4-8.2); eGFR BLACK RACES > 60 (>60); eGFR NON BLACK RACES > 60 (>60)
[2017-07-25] MEDS: CARAFATE PO SCH ×2 (06:10→10:54)
[2017-07-25 07:58] LABS: ERYTHROCYTE SEDIMENTATION RATE 5 MM/HOUR (0-15)
[2017-07-25] MEDS: LOPRESSOR TAB 25 MG PO SCH (09:00)
[2017-07-25] MEDS: CIPRO IV 400 MG PREMIX* 400 MG/200 ML IV.SOLN. IV SCH (09:01)
[2017-07-25] MEDS: FOLIC ACID TAB 1 MG PO SCH (09:01)
[2017-07-25] MEDS: FLAGYL IV PREMIX 500 MG BAG 500 MG/100 ML BAG IV SCH (09:01)
[2017-07-25 09:46] VITALS: BP 150/87
[2017-07-25] MEDS: DARUNAVIR ETHANOLATE PO SCH (10:07)
[2017-07-25] MEDS: PROCTOSOL HC CRM 2.5% TOP SCH (10:08)
[2017-07-25] MEDS: RITONAVIR PO SCH (10:09)
== END 2017-07-25 11:00 | disposition home or self-care (01) | DRG 377 ==
LOC: ER 16:22 → MED/SURG 20:12
PROVIDERS: ADMIT Internal Medicine; ATTEND Internal Medicine
DX: K62.5 Hemorrhage of anus and rectum (principal); B20 Human immunodeficiency virus [HIV] disease; K52.89 Other specified noninfective gastroenteritis and colitis; R11.2 Nausea with vomiting, unspecified; R10.84 Generalized abdominal pain
CPT/HCPCS: 36415; 74176; 80053; 82150; 83690; 85025; 85652; 86140; 96365; 96367; 96372; 96374; 96375; 99282; 99284; A4216; A4222; S0030; J0500; J0744; J1170; J1200; J2405; J2550; J2920

== ENCOUNTER 2017-07-30 15:29 | Emergency (ER) | payer SELFPAY ==
[2017-07-30 15:33] VITALS: BMI 23.6
--- NOTE | 2017-07-30 17:34 | DR.ABDMALE ---
HPI - PCP Primary Care Physician: LOWELLD - Complaint Chief Complaint:: PT. C/O BLOOD IN STOOL AND ABDOMINAL PAIN THAT BEGAN THIS MORNING. PT. WAS HOSPITALIZED FOR SAME C/O AND WAS DISCHARGED HOME2 DAYS AGO. 6 EPISODES OF BLOODY DIARRHEA TODAY. - Mode of arrival Mode of Arrival: Ambulatory - Timing Onset of Chief Complaint: 07/30/17 PMH - PMH Past Medical History: Yes Past Medical History: Hypertension Past Medical History Comment: HIV Past Surgical History: Yes Surgical History: Other Past Surgical History Comment: HERNIA - Family History History of Family Medical Conditions: No - Social History Does patient currently use any type of tobacco product: Yes Have you used tobacco products in the last 12 months: Yes Type of Tobacco Use: Cigarettes Does any household member use tobacco: No Alcohol Use: Heavy Do you use any recreational Drugs:: No Lives With: Alone Lives Where: Home - infectious screening In the last 2 months have you had wt loss of >10#?: NO Have you had fever, night sweats or hemotysis?: No Have you traveled outside the country in the last 6 months?: No Isolation: Standard PE - Vital Signs Vital Signs: Temp Pulse Resp BP BP Pulse Ox 07/30/17 18:44 183/109 07/30/17 15:30 98.6 F 95 H 18 180/90 97 07/25/17 08:00 150/87 150/87 ROR - Labs Reviewed Result Diagrams: 07/30/17 17:57 07/30/17 17:57 Laboratory: WBC 4.8 X10^3/uL (3.6-10.0) 07/30/17 17:57 RBC 3.76 X10^6/uL (4.7-6.0) L 07/30/17 17:57 Hgb 12.5 g/dL (13.5-18.0) L 07/30/17 17:57 Hct 36.4 % (42.0-54.0) L 07/30/17 17:57 MCV 96.7 fL (80.0-100.0) 07/30/17 17:57 MCH 33.2 pg (27.0-34.0) 07/30/17 17:57 MCHC 34.3 g/dL (33.0-35.0) 07/30/17 17:57 RDW 13.1 % (11.6-16.5) 07/30/17 17:57 Plt Count 250 X10^3/uL (150.0-450.0) 07/30/17 17:57 MPV 8.0 fL (7.4-11.0) 07/30/17 17:57 Neut % 24.8 % (42.0-75.0) L 07/30/17 17:57 Lymph % 57.4 % (21.0-51.0) H 07/30/17 17:57 [place] % 15.0 % (0.0-13.0) H 07/30/17 17:57 Eos % 1.8 % (0.9-2.9) 07/30/17 17:57 Baso % 1.0 % (0.2-1.0) 07/30/17 17:57 Neut # 1.2 x10^3/uL (2.2-4.8) L 07/30/17 17:57 Lymph # 2.7 X10^3/uL (1.3-2.9) 07/30/17 17:57 [place] # 0.7 x10^3/uL (0.3-0.8) 07/30/17 17:57 Eos # 0.1 x10^3/uL (0.0-0.2) 07/30/17 17:57 Baso # 0.0 X10^3/uL (0.0-0.1) 07/30/17 17:57 Absolute Nucleated RBC 0.1 /100WBC 07/30/17 17:57 Sodium 144 mmol/L (136-145) 07/30/17 17:57 Corrected Sodium TNP 07/30/17 17:57 Potassium 3.5 mmol/L (3.5-5.1) 07/30/17 17:57 Chloride 105 mmol/L (98-107) 07/30/17 17:57 Carbon Dioxide 31.1 mmol/L (21-32) 07/30/17 17:57 BUN 15 mg/dL (7-18) 07/30/17 17:57 Creatinine 0.89 mg/dL (0.70-1.30) 07/30/17 17:57 Est GFR (MDRD) Af Amer > 60 (>60) 07/30/17 17:57 Est GFR (MDRD) Non-Af > 60 (>60) 07/30/17 17:57 Glucose 88 mg/dL (65-99) 07/30/17 17:57 Calcium 7.7 mg/dL (8.5-10.1) L 07/30/17 17:57 Amylase 53 Units/L (25-115) 07/30/17 17:57 Lipase 142 Units/L (73-393) 07/30/17 17:57 Specimen Type Random urine 07/30/17 17:50 Urine Color Yellow (YELLOW) 07/30/17 17:50 Urine Appearance Clear (CLEAR) 07/30/17 17:50 Urine pH 6.5 (5.0 - 8.0) 07/30/17 17:50 Ur Specific [place] 1.020 (1.000-1.030) 07/30/17 17:50 Urine Protein 1+ (NEGATIVE) 07/30/17 17:50 Urine Glucose (UA) Negative (NEGATIVE) 07/30/17 17:50 Urine Ketones Negative (NEGATIVE) 07/30/17 17:50 Urine Occult Blood Negative (NEGATIVE) 07/30/17 17:50 Urine Nitrite Negative (NEGATIVE) 07/30/17 17:50 Urine Bilirubin Negative (NEGATIVE) 07/30/17 17:50 Urine Urobilinogen 2+ (NORMAL) 07/30/17 17:50 Ur Leukocyte Esterase Negative (NEGATIVE) 07/30/17 17:50 Urine RBC Negative /HPF (NEGATIVE) 07/30/17 17:50 Urine WBC Rare /HPF (NEGATIVE) 07/30/17 17:50 Ur Squamous Epith Cells Rare /HPF (NEGATIVE) 07/30/17 17:50 Urine Bacteria Negative /HPF (NEGATIVE) 07/30/17 17:50 Ur Culture Indicated? No/not indicated 07/30/17 17:50 - Discharge Plan Condition: Stable Prescriptions: Ranitidine HCl [ZANTAC TAB 150 MG *] 150 mg PO BID #60 tab - Follow ups/Referrals Follow ups/Referrals: N[facility],None [Primary Care Provider] - 3 days ARUN ROCK [STAFF PHYSICIAN] - 08/02/17 - Instructions Instructions: Gastrointestinal Bleeding, [id number] Additional Instructions: RETURN TO IF WORSE. SEE DR. ROCK WEDNESDAY AT 14:00PM.
[2017-07-30] MEDS ORDERED: NS 1000 ML 1,000 ML ONE (17:49)
[2017-07-30] MEDS ORDERED: PROTONIX INJ 40 MG VIAL ONE (17:50)
[2017-07-30] MEDS ORDERED: NS 1000 ML 1,000 ML IV ONE (17:50)
[2017-07-30] MEDS ORDERED: NS 100 ML IV 100 ML IV ONE (17:51)
[2017-07-30] MEDS ORDERED: PROTONIX INJ 40 MG VIAL 80 MG in NS 100 ML IV 80 ML IV SCH (18:00)
[2017-07-30 18:09] LABS: EOSINOPHILS # (AUTO) 0.1 x10^3/uL (0.0-0.2); EOSINOPHILS % (AUTO) 1.8 % (0.9-2.9); HEMATOCRIT 36.4 % (42.0-54.0); HEMOGLOBIN 12.5 g/dL (13.5-18.0); LYMPHOCYTES # (AUTO) 2.7 X10^3/uL (1.3-2.9); LYMPHOCYTES % (AUTO) 57.4 % (21.0-51.0); MEAN CORPUSCULAR HEMOGLOBIN 33.2 pg (27.0-34.0); MEAN CORPUSCULAR HGB CONC 34.3 g/dL (33.0-35.0); MEAN CORPUSCULAR VOLUME 96.7 fL (80.0-100.0); MONOCYTES # (AUTO) 0.7 x10^3/uL (0.3-0.8); NEUTROPHILS # (AUTO) 1.2 x10^3/uL (2.2-4.8); NEUTROPHILS % (AUTO) 24.8 % (42.0-75.0); PLATELET COUNT 250 X10^3/uL (150.0-450.0); RED BLOOD COUNT 3.76 X10^6/uL (4.7-6.0); RED CELL DISTRIBUTION WIDTH 13.1 % (11.6-16.5); WHITE BLOOD COUNT 4.8 X10^3/uL (3.6-10.0)
[2017-07-30 18:16] LABS: BLOOD UREA NITROGEN 15 mg/dL (7-18); CALCIUM 7.7 mg/dL (8.5-10.1); CARBON DIOXIDE 31.1 mmol/L (21-32); CHLORIDE 105 mmol/L (98-107); CREATININE 0.89 mg/dL (0.70-1.30); SODIUM 144 mmol/L (136-145); eGFR BLACK RACES > 60 (>60); eGFR NON BLACK RACES > 60 (>60)
[2017-07-30 18:33] LABS: AMYLASE 53 Units/L (25-115); LIPASE 142 Units/L (73-393)
[2017-07-30] MEDS ORDERED: MORPHINE SULFATE INJ 4 MG IVP ONE (18:35)
[2017-07-30] MEDS ORDERED: ZOFRAN INJ 4 MG VIAL IVP ONE (18:38)
[2017-07-30] MEDS ORDERED: MORPHINE SULFATE INJ 4 MG ONE (18:39)
[2017-07-30 18:45] VITALS: BP 183/109
[2017-07-30] MEDS ORDERED: ZOFRAN INJ 4 MG VIAL ONE (18:46)
[2017-07-30 18:47] LABS: BILIRUBIN,URINE NEGATIVE (NEGATIVE); BLOOD/HEMOGLOBIN,URINE NEGATIVE (NEGATIVE); GLUCOSE, URINE NEGATIVE (NEGATIVE); KETONES,URINE NEGATIVE (NEGATIVE); LEUKOCYTE ESTERASE ,URINE NEGATIVE (NEGATIVE); NITRITES,URINE NEGATIVE (NEGATIVE); PH,URINE 6.5 (5.0 - 8.0); PROTEIN,URINE 1+ (NEGATIVE); UROBILINOGEN,URINE 2+ (NORMAL)
[2017-07-30 19:02] LABS: APPEARANCE,URINE CLEAR (CLEAR); COLOR,URINE YELLOW (YELLOW)
[2017-07-30 19:04] LABS: BACTERIA,URINE NEGATIVE /HPF (NEGATIVE); RBC,URINE NEGATIVE /HPF (NEGATIVE); SQUAMOUS EPITHELIAL CELL,UR RARE /HPF (NEGATIVE)
== END 2017-07-30 21:32 | disposition home or self-care (01) ==
LOC: ER 15:35
DX: K92.2 Gastrointestinal hemorrhage, unspecified (principal)
CPT/HCPCS: 36415; 80048; 81001; 82150; 83690; 85025; 96365; 96367; 96374; 96375; 99282; 99283; A4222; C9113; J2270; J2405